=== PATIENT | female | born 1965 | race Caucasian/White ===

== ENCOUNTER 2017-03-23 17:20 | Emergency (ER) | payer MEDICAID ==
[~2017-03-23] VITALS: Ht 165.1 cm; Wt 68.5 kg
[2017-03-23 19:03] VITALS: BP 120/67
== END 2017-03-23 19:03 | disposition home or self-care (01) ==
LOC: ED 17:20
DX: K04.7 Periapical abscess without sinus (principal); S02.5XXA Fracture of tooth (traumatic), initial encounter for closed fracture; N89.8 Other specified noninflammatory disorders of vagina; F32.1 Major depressive disorder, single episode, moderate; X58.XXXA Exposure to other specified factors, initial encounter; Y93.89 Activity, other specified; Y92.89 Other specified places as the place of occurrence of the external cause; Y99.8 Other external cause status

== ENCOUNTER 2017-06-09 17:48 | Emergency (ER) | payer MEDICAID ==
[~2017-06-09] VITALS: Ht 165.1 cm; Wt 70.3 kg
[2017-06-09 18:00] VITALS: BP 141/72
== END 2017-06-09 22:07 | disposition home or self-care (01) ==
LOC: ED 17:48
DX: S83.92XA Sprain of unspecified site of left knee, initial encounter (principal); Z88.5 Allergy status to narcotic agent; R51 Headache; W18.39XA Other fall on same level, initial encounter; Y93.89 Activity, other specified; Y92.89 Other specified places as the place of occurrence of the external cause; Y99.8 Other external cause status